=== PATIENT | male | born 1995 | race Caucasian/White ===

== ENCOUNTER 2021-12-15 00:37 | Emergency (ER) | payer OTHER ==
[~2021-12-15] VITALS: Ht 180.3 cm; Wt 97.7 kg
[2021-12-15 01:00] VITALS: BP 135/76
[2021-12-15] MEDS ORDERED: TETANUS, DIPHTHERIA, PERTUSSIS VAC/PF 0.5ML (>10YR OLD) IM ONE (02:30)
[2021-12-15] MEDS ORDERED: BACITRACIN ZINC OINT UDPKT TOP ONE (02:30)
[2021-12-15] MEDS ORDERED: ACETAMINOPHEN 325MG TABLET PO ONE (02:30)
[2021-12-15] MEDS ORDERED: LIDOCAINE HCL 1% 20ML VIAL (Pyxis) INJ INFIL ONE (02:45)
[2021-12-15] MEDS ORDERED: IBUP-2029 PO (03:29)
== END 2021-12-15 04:16 | disposition home or self-care (01) ==
LOC: ER 00:37
DX: S01.01XA Laceration without foreign body of scalp, initial encounter (principal); W51.XXXA Accidental striking against or bumped into by another person, initial encounter; Y93.67 Activity, basketball; Y92.89 Other specified places as the place of occurrence of the external cause
CPT/HCPCS: 12002; 90471; 90715; 99283; J3490; Z7610

== ENCOUNTER 2021-12-21 21:56 | Emergency (ER) | payer OTHER ==
[~2021-12-21 21:56] MED LIST: IBUP-2029 PO
== END 2021-12-21 23:25 | disposition left against medical advice (07) ==
LOC: ER 21:56
DX: Z53.21 Procedure and treatment not carried out due to patient leaving prior to being seen by health care provider (principal)

== ENCOUNTER 2021-12-24 15:23 | Emergency (ER) | payer OTHER ==
[~2021-12-24] VITALS: Ht 175.3 cm; Wt 89.0 kg
[2021-12-24 15:33] VITALS: BP 138/79
== END 2021-12-24 16:37 | disposition home or self-care (01) ==
LOC: ER 15:23
DX: Z48.00 Encounter for change or removal of nonsurgical wound dressing (principal)
CPT/HCPCS: 99281; Z7610